=== PATIENT | female | born 2000 | race Caucasian/White ===

== ENCOUNTER 2025-05-21 07:07 | Day surgery (SDC) | payer OTHER, BC, SELFPAY ==
[2025-05-21] VITALS (10 sets, daily range): BP systolic 108–140; BP diastolic 47–95; PULSE 67–109; RESP 10–20; TEMP 36.3–37.3; O2SAT 96–100
--- NOTE | ~2025-05-21 | XR_ITS ---
EXAMINATION: XR retrograde pyelo w/stent RT DATE: 05/21/2025 11:49 INDICATION: Recent right-sided renal stone TECHNIQUE: 3 fluoroscopic images of the abdomen and pelvis were obtained procedure performed by Dr. Humphries. Radiologist was not present for the imaging or procedure. The amount of fluoroscopy time used during this procedure was 0.1 minutes. The dose area product was 0.029 mGym^2. COMPARISON: CT dated 05/21/2025 FINDINGS: Initial Armature Rewinder image demonstrates contrast in the bilateral renal collecting systems and bilateral ureters likely representing excreted contrast related to earlier contrast-enhanced CT. Persistent mild right hydroureteronephrosis. The right ureter and subsequently cannulated presumably for removal of the preceding noted right ureterovesicular junction stone. This is replaced with a right internal ureteral stent with loops formed in the right renal pelvis on the final image. IMPRESSION: 1. Mild right hydroureteronephrosis. See procedure note as to whether the previously seen obstructing stone at the right ureterovesicular junction has been extracted. 2. Placement of a right internal ureteral stent in expected position. Reviewed, dictated and finalized at location A. VANCE AND APPEALS COORDINATOR IMPRESSION: 1. Mild right hydroureteronephrosis. See procedure note as to whether the previ ously seen obstructing stone at the right ureterovesicular junction has been ex tracted. 2. Placement of a right internal ureteral stent in expected position.
--- NOTE | ~2025-05-21 | CT_ITS ---
EXAMINATION: CT abdomen pelvis w con DATE: 05/21/2025 08:25 INDICATION: Fever. Recent right renal stones with pyelonephritis. TECHNIQUE: Computed tomography (CT) of the abdomen and pelvis was performed with 100 mL Omnipaque-350 intravenous contrast. Automated exposure control and iterative reconstruction technique were employed. The dose-length product was 181.41 mGy-cm. COMPARISON: None FINDINGS: Lung bases are clear. Heart size is normal. No pericardial or pleural effusion. Liver, gallbladder, spleen, pancreas and bilateral adrenal glands are normal. Bilateral nephrolithiasis with 2 stones measuring up to 2 mm in the right kidney and 6 punctate < 2 mm stones in the left kidney. Obstructing 4-5 mm stone at the right ureterovesicular junction with mild right hydroureteronephrosis. Bowels including the appendix are normal. Bladder is normal. T-shaped IUD in expected position within the anteverted uterus. Bilateral adnexa are unremarkable with multiple small follicles measuring up to 1 cm. Trace amount of likely physiologic free fluid in the cul-de-sac. No abscess or free intraperitoneal gas. No pathologically enlarged abdominal or pelvic lymphadenopathy. Mild lumbar levocurvature. IMPRESSION: 1. Bilateral nephrolithiasis with 4-5 mm stone at the right ureterovesicular junction with mild right hydroureteronephrosis. Reviewed, dictated and finalized at location A. ERCIAL MANAGER IMPRESSION: 1. Bilateral nephrolithiasis with 4-5 mm stone at the right ureterovesicular ju nction with mild right hydroureteronephrosis.
[2025-05-21 07:31] LABS: Hematocrit 41.5 % (37.0-47.0); Hemoglobin 14.0 g/dL (12.0-15.0); Immature Granulocyte Percent A 0.3 % (0-0.5); Lymphocytes Absolute Auto 1.46 K/mm3 (0.9-3.2); Mean Corpuscular HGB Conc 33.7 g/dl (32-36); Mean Corpuscular Hemoglobin 32.6 pg (26-34); Mean Corpuscular Volume 96.7 fl (80-100); Nucleated Red Blood Cells Absolute Auto 0.000 K/mm3 (0.0-0.012); Nucleated Red Blood Cells Perc 0.0 % (0.0-0.2); Platelet Count Result 245 k/mm3 (150-375); Red Blood Count 4.29 M/mm3 (4.2-5.4); White Blood Count 10.2 K/mm3 (4.5-10.0)
[2025-05-21 07:36] LABS: Add Urine Microscopic? YES; Appearance Urine Clear (Clear); Glucose Urine UA Negative (Negative); Leukocyte Esterase Ur 1+ LEU/UL (Negative); Nitrate Urine Negative (Negative); Non Pathogenic Casts 0-2; Specific Grav Ur 1.018 (1.001-1.035)
[2025-05-21 07:37] LABS: BEDSIDEPREGUCG Negative (Negative)
[2025-05-21 07:43] LABS: Alanine Aminotransferase 16 U/L (6-35); Albumin Level 5.1 g/dL (3.5-5.1); Alkaline Phosphatase 56 U/L (38-126); Anion Gap 10 mmol/L (4-12); Aspartate Amino Transferase 22 U/L (14-36); Bilirubin,Total 0.4 mg/dL (0.2-1.3); Blood Urea Nitrogen 12 mg/dL (7-17); Calcium 9.4 mg/dL (8.4-10.2); Carbon Dioxide 26 mmol/L (22-30); Chloride 102 mmol/L (98-107); Estimated CRCL calculation 78 ml/min; Estimated Glomerular Filt Rate > 60; Glucose 101 mg/dL (65-110); Potassium 4.0 mmol/L (3.4-5.0); Sodium 138 mmol/L (137-145); Total Protein 8.1 g/dL (6.3-8.2)
--- NOTE | 2025-05-21 07:46 | ED.FEMALEGU ---
HPI - Female Genitourinary General Chief complaint: Urogenital-Female Stated complaint: R RENAL STONE Time Seen by Provider: 05/21/25 07:25 Source: patient and family (aunt and sister) Mode of arrival: ambulatory Limitations: no limitations History of Present Illness HPI Narrative: Patient presents with pain from a right sided kidney stone. She was seen at [facility] in [facility] 2 days ago and told she had a stone there. Still having flank pain and and nausea with vomiting. Pain had decreased but now back. Subjective fever today. Had been sent home on oxy, Zofran, and FLomax; taking them except not yet today. History of multiple kidney stones for which her urologist is Dr Walton. No previous procedure, only expulsion therapy previously. History UTI and pyelo as well. Related Data Allergies Allergy/AdvReac Type Severity Reaction Status Date / Time lactose AdvReac Unknown Abdominal Verified 05/21/25 07:09 Pain PMFSH Past Medical History Medical History History of kidney stones Exam Narrative: GENERAL: Well-appearing, well-nourished, in mild to moderate acute distress. HEAD: Normocephalic, atraumatic. EYES: Non injected, non icteric ENT: Nares clear, no rhinorrhea or epistaxis. Gross auditory acuity intact. NECK: Supple. No meningismus. CHEST: Speaking in full sentences. No respiratory distress. HEART: Regular rate and rhythm. . ABDOMEN: Soft, nondistended. No rigidity or guarding. Not peritoneal EXTREMITIES: Normal range of motion. No lower extremity edema. SKIN: Warm, dry, no rash. BACK: B/l CVA tenderness NEURO: No focal deficits. Alert and oriented. Answering questions. Following commands. Normal speech without aphasia or dysarthria. PSYCH: Normal mood and affect. Course Vital Signs Vital signs: Vital Signs Temperature 97.8 F 05/21/25 07:16 Pulse Rate 77 05/21/25 07:16 Respiratory Rate 20 05/21/25 07:16 Blood Pressure 133/95 H 05/21/25 07:16 Pulse Oximetry 100 05/21/25 07:16 Oxygen Delivery Room Air 05/21/25 07:16 Temperature 97.3 F L 05/21/25 11:58 Pulse Rate 78 05/21/25 13:55 Respiratory Rate 16 05/21/25 12:50 Blood Pressure 108/66 05/21/25 13:55 Pulse Oximetry 96 05/21/25 12:50 Oxygen Delivery Room Air 05/21/25 12:50 Oxygen Flow Rate 6 05/21/25 12:10 MDM - Female Genitourinary MDM Narrative Medical decision making narrative: Patient presents with persistent right sided flank pain. Seen at [facility] 2 days ago and diagnosed with kidney stone on the right, 3mm. Currently trialing expulsion therapy but still having pain , N/V despite oxy, Zofran and FLomax. In the emergency department she is afebrile with acceptable vital signs. Mild leukocytosis. Hematuria on urinalysis with some sterile pyuria. It does reflux to culture. Chemistry unremarkable. Patient had been given small dose morphine and ondansetron. CT as below. Pain and nausea still present on reassessment at approximately 8:45 a.m. although she notes that she is having some mild improvement. Redosed. Crystal FERNANDO with urology will see patient after discussing with her at 9am. FERNANDO evaluates patient and discusses with Dr Gilbert attending followed by patient in regards to options as it seems she should pass it given size and location but persistent pain and symptoms warrents consideration of procedure. Ultimately patient now electing to proceed with operative management. Will go to the OR this AM with urologist Dr Humphries. Remains hemodynamically stable. Differential Diagnosis Differential diagnosis: Likely urinary tract infection, ovarian cyst, ruptured ovarian cyst and other (pyelo; kidney stone/ureteral stone) Lab Data Attestation: I reviewed the patient's lab results. 05/21/25 07:23 05/21/25 07:23 Labs: Lab Results 05/21/25 05/21/25 Range/Units 07:23 07:35 WBC 10.2 H (4.5-10.0) K/mm3 RBC 4.29 (4.2-5.4) M/mm3 Hgb 14.0 (12.0-15.0) g/dL Hct 41.5 (37.0-47.0) % MCV 96.7 (80-100) fl MCH 32.6 (26-34) pg MCHC 33.7 (32-36) g/dl RDW 11.9 (11.5-14.5) % Plt Count 245 (150-375) k/mm3 MPV 10.1 (7.4-10.4) fl Immature Gran % (Auto) 0.3 (0-0.5) % Neut % (Auto) 79.3 H (45.5-73.1) % Lymph % (Auto) 14.3 L (18.3-44.2) % [place] % (Auto) 5.4 (2.6-8.5) % Eos % (Auto) 0.3 (0-4.4) % Baso % (Auto) 0.4 (0.2-1.2) % Lymph # (Auto) 1.46 (0.9-3.2) K/mm3 [place] # (Auto) 0.6 (0.1-0.6) K/mm3 Eos # (Auto) 0.0 (0-0.3) K/mm3 Baso # (Auto) 0.0 (0.0-0.1) K/mm3 Abs Immat Gran (auto) 0.03 (0.00-0.031) K/mm3 Absolute Neuts (auto) 8.1 H (1.3-6.7) K/mm3 Absolute Nucleated RBC 0.000 (0.0-0.012) K/mm3 Nucleated RBC % 0.0 (0.0-0.2) % Sodium 138 (137-145) mmol/L Potassium 4.0 (3.4-5.0) mmol/L Chloride 102 (98-107) mmol/L Carbon Dioxide 26 (22-30) mmol/L Anion Gap 10 (4-12) mmol/L BUN 12 (7-17) mg/dL Creatinine 0.76 (0.7-1.0) mg/dL Estim Creat Clear Calc 78 ml/min Estimated GFR > 60 (59 - ) Glucose 101 (65-110) mg/dL Calcium 9.4 (8.4-10.2) mg/dL Total Bilirubin 0.4 (0.2-1.3) mg/dL AST 22 (14-36) U/L ALT 16 (6-35) U/L Alkaline Phosphatase 56 (38-126) U/L Total Protein 8.1 (6.3-8.2) g/dL Albumin 5.1 (3.5-5.1) g/dL Urine Color Yellow (Yellow) Urine Appearance Clear (Clear) Urine pH 5.5 (5.0-9.0) Ur Specific [place] 1.018 (1.001-1.035) Urine Protein Trace (Negative) mg/dL Urine Glucose (UA) Negative (Negative) mg/dL Urine Ketones Negative (Negative) mg/dL Ur Blood (Man) 3+ H (Negative) Urine Nitrate Negative (Negative) Urine Bilirubin Negative (Negative) Urine Urobilinogen 0.2 (<2.0) mg/dL Leukocyte Esterase Rfl 1+ H (Negative) GERRY/UL Urine RBC 51-100 H (0-2) /hpf Urine WBC 11-20 H (0-3) /hpf Ur Squamous Epith Cells None seen (Few) /hpf Urine Bacteria None seen /hpf Urine Casts 0-2 POC Urine HCG, Qual Negative (Negative) Imaging Data Radiologist's impression: IMPRESSION: 1. Bilateral nephrolithiasis with 4-5 mm stone at the right ureterovesicular junction with mild right hydroureteronephrosis Discharge Plan Discharge Clinical Impression: Bilateral nephrolithiasis, Calculus of ureterovesical junction (UVJ), Hydroureteronephrosis Patient Disposition: Still a Patient Condition: Stable Time of Disposition: 10:12
[2025-05-21] MEDS: MORPHINE SULFATE (*CRX) 4 MG/ML INJ 2 MG IV PUSH ×2 (07:50→09:43)
[2025-05-21] MEDS: ONDANSETRON INJ 4 MG/2 ML VIAL IV PUSH ×2 (07:50→12:05)
--- OUTSIDE RECORDS SUMMARY | 2025-05-21 09:03 | XMS_ITS | Clinical Summary ---
Author Organization [facility] Address [address] [place] [address] Care Team Providers Care Ceramic Worker Name Role Phone David Fowler MD Primary Care Provider [phone] Allergies Active Allergy Reactions Criticality Noted Date Comments Lactose Swelling,Stomach upset Medium 01/08/2018 Pollen Extracts Rhinorrhea Low 03/10/2018 Medications levonorgestreL (LILETTA) 20.4 mcg/24 hrs (8 yrs) 52 mg IUD by intrauterine route once Active prochlorperazin e (COMPAZINE) 10 mg tablet Take 1 tablet (10 mg total) by mouth 2 (two) times a day as needed for nausea or vomiting 10 tablet 5 Active hydrOXYzine (ATARAX) 25 mg tabletIndicatio ns:anxiety Take 1 tablet (25 mg total) by mouth 3 (three) times a day as needed for anxiety Take one tablet by mouth as needed three times per day 90 tablet 1 5 Active propranoloL (INDERAL) 10 mg tablet Take 1 tablet (10 mg total) by mouth 3 (three) times a day 270 tablet 5 Active tamsulosin (FLOMAX) 0.4 mg extended release capsule Take 1 capsule (0.4 mg total) by mouth daily 30 capsule 5 Active oxyCODONE (ROXICODONE) 5 mg immediate release tabletIndicatio ns:Pain Take 1 tablet (5 mg total) by mouth every 6 (six) hours as needed for pain for up to 3 days 12 tablet 5 05/21/20 25 Active ondansetron (ZOFRAN) 4 mg tablet Take 1 tablet (4 mg total) by mouth every 6 (six) hours 12 tablet 5 Active Active Problems Problem Noted Date Diagnosed Date Pyelonephritis 08/02/2024 Hydronephrosis 08/02/2024 Body mass index (BMI) 21.0-21.9, adult Assessment & Plan (01/07/2024 5:14 PM CDT): Wt Readings from Last 3 Encounters: 01/06/24 53.1 kg (117 lb) 11/27/23 52.2 kg (115 lb) 11/14/23 52.2 kg (115 lb) Body mass index is 21.4 kg/m . -Stable, at goal of <30 bmi -Discussed recommendations for exercise at least 30 minutes moderate to vigorous exercise as tolerated most days of the week. (minimum 150 minutes weekly) -Discussed importance of well-balanced diet. History of ovarian cyst 12/08/2023 Assessment & Plan (12/08/2023 3:53 PM CDT): Happy with her IUD for her BCM. I did discuss with patient that her IUD only suppresses her ovarian function by about 50%. Therefore some women still have issues with the development of complex/hemorrhagic cyst that can cause undesired symptoms, such as the pelvic pain she has/had an experiencing. Can always consider adding a low-dose MEGAN to help provide better ovarian suppression and hopefully reduce occurrence of cyst. Await pelvic ultrasound. Can consider adding ortho Tri- Cyclen Lo in future if needed. Physical exam, annual 09/17/2023 Functional abdominal pain syndrome 05/20/2023 Small intestinal bacterial overgrowth (SIBO) 12/2022 Assessment & Plan (06/19/2023 2:25 PM MASTER BREWER): As per GI Start rifaxmin tid Irritable bowel syndrome with diarrhea 3 Chronic diarrhea 01/22/2023 Nausea and vomiting 01/22/2023 Assessment & Plan (09/17/2023 2:30 PM MASTER BREWER): Worsening sx Will start zofran again Assessment & Plan (06/19/2023 2:24 PM MASTER BREWER): Following with GI Nothing to exaplian sx at this time They are going to treat her for SIBO Unsure if that is cause at this time Bilateral lower abdominal cramping 01/22/2023 Bilateral upper abdominal discomfort 01/22/2023 Bloating 01/22/2023 Anxiety 09/26/2022 Assessment & Plan (01/07/2024 5:15 PM CDT): -chronic, stable -patient currently takes propranolol 10 mg t.i.d., hydroxyzine 25 mg t.i.d. -previously followed with Psychiatry -patient denies any worsening of depressed mood, thoughts of harming herself or others, or worsening anxiety -refill of propranolol and hydroxyzine provided -continue current therapy Assessment & Plan (06/19/2023 1:37 PM MASTER BREWER): Doing well at this time and well controlled. Takes inderal 10 mg prn and atarax 25 mg prn Can continue with those Assessment & Plan (09/26/2022 2:16 PM CDT): Doing well at this time and well controlled. Takes inderal 10 mg prn and atarax 25 mg prn Can continue with those Attention deficit hyperactiv ity disorder (ADHD), combined type 09/26/2022 Assessment & Plan (01/07/2024 5:17 PM CDT): -chronic, stable -previously prescribed Strattera 60 mg daily -previously followed with Psychiatry -patient reports she has not been taking the Strattera and feels that her ADHD has been stable without medication -patient reports she plans to continue without medication at this time -continue current treatment plan Assessment & Plan (09/26/2022 2:17 PM CDT): Stable at this time - will trestart strattera if needed but patient is doing well Can place referral to psychaitry now just in case Recurrent major depressive disorder, in partial remission 09/26/2022 Assessment & Plan (06/19/2023 1:38 PM MASTER BREWER): Stable at this time Patient reiterated no suicidal thoughts at this time; take medication as directed; contact 911 and go to the ER if becomes suicidal; discussed side effects of medication with patient; encouraged healthy diet and exericise; encouraged patient to see a counselor Partial remession No longer on zoloft Assessment & Plan (09/26/2022 2:18 PM CDT): Stable at this time Patient reiterated no suicidal thoughts at this time; take medication as directed; contact 911 and go to the ER if becomes suicidal; discussed side effects of medication with patient; encouraged healthy diet and exericise; encouraged patient to see a counselor Partial remession No longer on zoloft Vaginal dryness 02/01/2016 Resolved Problems Problem Noted Date Diagnosed Date Resolved Date Upper respiratory tract infection 08/30/2016 09/26/2022 Sore throat 04/30/2016 09/26/2022 Encounters Date Type Department Care Team Description 05/18/2025 10:11 AM MASTER BREWER - 05/18/2025 5:49 PM MASTER BREWER Emergency [facility] Emergency Department [address] [place] [address] Beatriz Kovacs MD Panagos, Peter David, MD Nephrolithiasis (Primary Dx) Discharge Disposition: Discharge to home or self care 04/13/2025 3:15 PM CDT Telemedicine [facility] Primary Care at [address] [phone] David Fowler MD Nausea and vomiting, unspecified vomiting type (Primary Dx); Acute bilateral low back pain, unspecified whether sciatica present; Pelvic pain; Lipid screening; Chronic pain of both knees; Preventative health care from Last 3 Months Immunizations Immunization Administration Dates Next Due DTaP, Unspecified 03/09/2008, 5,05/21/2003,03/04,2002 HPV9 02/19/2020,03/10/2018 Hep A, Unspecified 03/09/2008,04/07/2007 Hep B, Unspecified 05/21/2003,03/04/2003, 003 HiB 05/21/2003,03/04/2003,2002 IPV 03/09/2008, 3,03/04/2003,12/14 Influenza, Quadrivalent, Janessa l Culture-based MDCK, Preservative Free, Antibiotic Free, Intramuscular 03/19/2017 Influenza, Unspecified 09/26/2022(Deferr ed: Patient Refused),03/09/2008,04/07/2007, 003 MMR 03/09/2008,10/25/2003 Meningococcal MCV4P (Menactra) 02/19/2020,2015 Pneumococcal Conjugate 7-Valent 05/02/20,05/21/2003,03/04/2003,12/14 Pneumococcal Conjugate, Unspecified 04/14,05/21/2003,03/04/2003,12/14 Polio, Unspecified 03/09/2008, 3,03/04/2003,12/14 Tdap 11/14/2012 Varicella 03/09/2008,10/25/2003 Surgical History Surgery Date Site/Laterality Comments WISDOM TOOTH EXTRACTION 07/15/2019 - 07/14/2020 COLONOSCOPY 03/05/2023 Medical History Medical History Date Comments Depression Anxiety Kidney stones History of chlamydia 08/14/2022 Family History Medical History Relation Name Comments Kidney nephrosis Father Irritable bowel syndrome Half-Brother Endometriosis Half-Sister 1 Hyperlipidemia Mother Relation Name Status Comments Father Alive Half-Brother Alive Half-Sister 1 Alive Half-Sister 2 Alive Half-Sister 3 Alive Mother Alive Social History Tobacco Use Types Packs/Day Years Used Date Smoking Tobacco: Never Smokeless Tobacco: Never Tobacco Cessation:Counseling Given: Yes PHQ-2 Answer Date Recorded PHQ-2 Total Score (If total score is 3 or more points, staff should administer the PHQ-9) 1 04/13/2025 AUDIT-C Answer Date Recorded Q1: How often do you have a drink containing alc ohol? Monthly or less 04/13/2025 Average Number of Drinks Not on file 025 Frequency of Binge Drinking Not on file 03/17 Personal Safety Answer Date Recorded Have you ever been in or are you currently in a harmful physical or emotional relationship or is someone making you feel afraid or unsafe? Denies 05/18/2025 Comments No Sex and Gender Information Value Date Recorded Sex Assigned at Not on file Legal Sex Female 6:09 AM MASTER BREWER Gender Identity Female 09/14/2023 12:58 PM MASTER BREWER Sexual Orientation Straight 09/14/2023 12 :58 PM MASTER BREWER Obstetrics History Para Term AB IAB SAB Ectopic Multiple Livin g Live Births 0 0 0 0 0 0 0 0 0 0 0 Last Filed Vital Signs Vital Sign Reading Time Taken Comments Blood Pressure 112/70 05/18/2025 12:50 PM MASTER BREWER Pulse 106 05/18/2025 9:42 AM MASTER BREWER Temperature 36.7 C (98 F) 05/18/2025 9:44 AM MASTER BREWER Respiratory Rate 16 05/18/2025 9:42 AM MASTER BREWER Oxygen Saturation 100% 05/18/2025 9:42 AM MASTER BREWER Inhaled Oxygen Concentration - - Weight 46.3 kg (102 lb) 05/18/2025 9:42 AM MASTER BREWER Height 157.5 cm (5' 2) 05/18/2025 9:42 AM MASTER BREWER Body Mass Index 18.66 05/18/2025 9:42 AM MASTER BREWER Plan of Treatment Health Maintenance Due Date Last Done Comments Hepatitis C Screening 2002 Meningococcal B Vaccine (1 o f 2 - Standard) 2018 HPV Vaccines (3 - 3-dose series) 05/13/2020 02/19/20 20, 03/10/2018 DTaP/Tdap/Td Vaccine (7 - Td or Tdap) 11/14/2022 11/14/2012, 03/09/2008, 05/02/2005, Additional history exists Influenza Vaccine (#1) 2025 7, 03/09/2008, 04/07/2007, Additional history exists Cervical Cancer Screening 11/20/2025 11/20/2024, 08/2023 Chlamydia and Gonorrhea (GC/ CT) Screening 11/20/2025 11/20/2024, 11/14/2023, 09/17/2022, Additional history exists Regular Well Visit/Exam 18-64 11/20/2025, 11/14/2023, 09/17/2023 Depression Screening 04/13/2026 04/13/2025, 11/20/2024, 09/28/2024, Additional history exists Hepatitis B Screening Completed 05/21/2003 , 03/04/2003, 2002 Pneumococcal vaccine <65 Completed 005, 05/02/2005, 05/21/2003, Additional history exists Varicella Vaccines Completed 03/09/2008, 10/25/2003 Covid-19 Vaccine Discontinued 10/28/2022, 11/2021, 12/09/2020, Additional history exists Procedures Procedure Name Priority Date/Time Associated Diagnosis Comments CT ABDOMEN PELVIS W CONTRAST ED Urgent/IP Urgent 05/18/2025 1:27 PM MASTER BREWER EGFR STAT 05/18/2025 12:32 PM MASTER BREWER DIFFERENTIAL AUTO STAT 05/18/2025 12: 32 PM MASTER BREWER LIPASE STAT 05/18/2025 12:32 PM MASTER BREWER COMPREHENSIVE METABOLIC PANEL STAT 05/18/2025 12:32 PM MASTER BREWER CBC WITH AUTO DIFFERENTIAL STAT 05/18/2025 12:32 PM MASTER BREWER EGFR STAT 05/18/2025 11:19 AM MASTER BREWER DIFFERENTIAL AUTO STAT 05/18/2025 11: 19 AM MASTER BREWER LIPASE STAT 05/18/2025 11:19 AM MASTER BREWER COMPREHENSIVE METABOLIC PANEL STAT 05/18/2025 11:19 AM MASTER BREWER CBC WITH AUTO DIFFERENTIAL STAT 05/18/2025 11:19 AM MASTER BREWER POCT HCG, URINE Routine 05/18/2025 10:31 AM MASTER BREWER URINALYSIS, MICROSCOPIC ONLY STAT 05/18/2025 10:31 AM MASTER BREWER URINALYSIS AND REFLEX TO MICROSCOPIC STAT 05/18/2025 10:31 AM MASTER BREWER N. GONORRHOEAE/C. TRACHOMATIS AMPLIFICATION Routine 11/20/2024 4:31 PM CDT PAP, REFLEX HPV Routine 11/20/2024 4:31 PM CDT Well woman exam from Last 3 Months or Most Recently Relevant to Health Maintenance Results * CT Abdomen Pelvis W Contrast (05/18/2025 1:27 PM MASTER BREWER) Anatomical Region Laterality Modality Body N/A Computed Tomogra phy 05/18/2025 2:32 PM MASTER BREWER Impressions 05/18/2025 2:33 PM MASTER BREWER Mild right-sided hydronephrosis with 3 mm calcification in the region of the distal right ureter that could represent a ureteral stone. Though, it is difficult to follow the ureter to the bladder. Dictated by: Amari Guevara M.D. The radiology attending physician has personally reviewed this study, and had reviewed and/or edited this written report and agrees with it. Electronically signed by: Prince Fraser M.D. Narrative 05/18/2025 2:33 PM MASTER BREWER EXAMINATION: Computed tomography of the abdomen and pelvis with intravenous contrast HISTORY: 24-year-old female presenting with right flank and suprapubic pain. Concern for renal calculus. TECHNIQUE: Transaxial computed tomographic images of the abdomen and pelvis were obtained with intravenous contrast according to the standard protocol after the administration of 69 mL Opti-Ray 350 intravenous contrast. COMPARISON: 08/02/2024 CT. FINDINGS: Imaged lung bases are clear. No pleural effusion or pneumothorax. The heart is normal size without pericardial effusion. No focal lesion of the liver. No intra or extrahepatic biliary ductal dilatation. The gallbladder is decompressed. The pancreas and spleen are within normal limits. The kidneys are symmetrically enhancing. There are bilateral nonobstructing renal calculi. The previously seen right-sided hydronephrosis has decreased. There is a 3 mm calcification in the region of the distal right ureter that could represent a stone. The bladder is decompressed. The uterus is present with an intrauterine device in place. The large and small bowel are of normal caliber without evidence of obstruction. The abdominal aorta is of normal caliber. No abdominal or pelvic lymphadenopathy. No suspicious lytic or blastic osseous lesion. Procedure Note Prince Fraser MD - 05/18/2025 EXAMINATION: Computed tomography of the abdomen and pelvis with intravenous contrast HISTORY: 24-year-old female presenting with right flank and suprapubic pain. Concern for renal calculus. TECHNIQUE: Transaxial computed tomographic images of the abdomen and pelvis were obtained with intravenous contrast according to the standard protocol after the administration of 69 mL Opti-Ray 350 intravenous contrast. COMPARISON: 08/02/2024 CT. FINDINGS: Imaged lung bases are clear. No pleural effusion or pneumothorax. The heart is normal size without pericardial effusion. No focal lesion of the liver. No intra or extrahepatic biliary ductal dilatation. The gallbladder is decompressed. The pancreas and spleen are within normal limits. The kidneys are symmetrically enhancing. There are bilateral nonobstructing renal calculi. The previously seen right-sided hydronephrosis has decreased. There is a 3 mm calcification in the region of the distal right ureter that could represent a stone. The bladder is decompressed. The uterus is present with an intrauterine device in place. The large and small bowel are of normal caliber without evidence of obstruction. The abdominal aorta is of normal caliber. No abdominal or pelvic lymphadenopathy. No suspicious lytic or blastic osseous lesion. IMPRESSION: Mild right-sided hydronephrosis with 3 mm calcification in the region of the distal right ureter that could represent a ureteral stone. Though, it is difficult to follow the ureter to the bladder. Dictated by: Amari Guevara M.D. The radiology attending physician has personally reviewed this study, and had reviewed and/or edited this written report and agrees with it. Electronically signed by: Prince Fraser M.D. us Beatriz Kovacs MD IM CT PROCEDURES Final Re sult * eGFR (05/18/2025 12:32 PM MASTER BREWER) eGFR >90 >=60 mL/min/1. 73 m2 Comment: Interpretive Data Reference Interval Normal >/= 90 mL/min/1.73m2 Mildly decreased* 60 - 89 mL/min/1.73m2 Mildly to moderately decreased 45 - 59 mL/min/1.73m2 Moderately to severely decreased 30 - 44 mL/min/1.73m2 Severely decreased 15 - 29 mL/min/1.73m2 Kidney Failure < 15 mL/min/1.73m2 *Relative to young adult level Estimated glomerular filtration rate is determined by the 2020 CKD-EPI equation recommended by the National Kidney Foundation (A Unifying Approach to GFR Estimation: Recommendations of the NKF-ASK Task Force on Reassessing the Inclusion of Race in Diagnosing Kidney Disease, JASN 2020). The CKD-EPI equation should not be used for patients with unstable renal function and has not been validated in children and those over 70. Current interpretive data was last reviewed 2021. Blood 05/18/2025 12:3 2 PM MASTER BREWER 05/18/2025 12:42 PM MASTER BREWER Beatriz Kovacs MD LAB BLOOD ORDERABLES Final Result [facility] [place] [address] * (ABNORMAL) Differential, auto (05/18/2025 12:32 PM MASTER BREWER) Neutrophil abs 6.52(H) 1.50 - 6.50 K/cumm Imm gran abs 0.02 0.00 - 0.10 K/cumm [facility] Lymphocyte abs 2.21 0.80 - 3.30 K/cumm [facility] Monocyte abs 0.58 0.20 - 0.80 K/cumm [facility] Eosinophil abs 0.07 0.00 - 0.50 K/cumm [facility] Basophil abs 0.05 0.00 - 0.10 K/cumm [facility] Neutrophil pct 69.1 % [facility] Comment: Interpretive Data Percent cell count reference ranges are not reported, since discordance with absolute values may lead to misinterpretation of CBC data. Current Interpretive Data was last revised on 2017. Imm gran pct 0.2 % [facility] Comment: Interpretive Data Percent cell count reference ranges are not reported, since discordance with absolute values may lead to misinterpretation of CBC data. Current Interpretive Data was last revised on 2017. Lymphocyte pct 23.4 % [facility] Comment: Interpretive Data Percent cell count reference ranges are not reported, since discordance with absolute values may lead to misinterpretation of CBC data. Current Interpretive Data was last revised on 2017. Monocyte pct 6.1 % [facility] Comment: Interpretive Data Percent cell count reference ranges are not reported, since discordance with absolute values may lead to misinterpretation of CBC data. Current Interpretive Data was last revised on 2017. Eosinophil pct 0.7 % [facility] Comment: Interpretive Data Percent cell count reference ranges are not reported, since discordance with absolute values may lead to misinterpretation of CBC data. Current Interpretive Data was last revised on 2017. Basophil pct 0.5 % [facility] Comment: Interpretive Data Percent cell count reference ranges are not reported, since discordance with absolute values may lead to misinterpretation of CBC data. Current Interpretive Data was last revised on 2017. Blood 05/18/2025 12:3 2 PM MASTER BREWER 05/18/2025 12:42 PM MASTER BREWER us Beatriz Kovacs MD LAB BLOOD ORDERABLES Final Result [facility] [place] [address] * (ABNORMAL) CBC with auto differential (05/18/2025 12:32 PM MASTER BREWER) WBC 9.45 3.80 - 9.90 K/cumm Hgb 12.3 11.9 - 15.5 g/dL [facility] Hct 35.2(L) 35.6 - 45.5 % [facility] Plt 233 150 - 400 K/cumm [facility] MPV 10.3 9.1 - 12.3 fL [facility] RBC 3.75(L) 3.90 - 5.20 M/cumm [facility] MCV 93.9 81.3 - 96.4 fL [facility] MCH 32.8 27.1 - 33.3 pg [facility] MCHC 34.9 32.3 - 35.7 g/dL [facility] RDW CV 11.9 11.1 - 14.9 % [facility] RDW SD 41.4 35.7 - 48.1 fL [facility] NRBC abs 0.00 0.00 - 0.01 K/cumm [facility] Blood 05/18/2025 12:3 2 PM MASTER BREWER 05/18/2025 12:42 PM MASTER BREWER Beatriz Kovacs MD LAB BLOOD ORDERABLES Final Result Performing Organization Address City/[facility]/ZIP Co de Phone Number [facility] [place] [address] * Lipase (05/18/2025 12:32 PM MASTER BREWER) [facility] Lipase 16 10 - 99 Units/L Blood 05/18/2025 12:3 2 PM MASTER BREWER 05/18/2025 12:42 PM MASTER BREWER Beatriz Kovacs MD LAB BLOOD ORDERABLES Final Result Performing Organization Address [facility] de Phone Number [facility] [place] [address] * (ABNORMAL) Comprehensive metabolic panel (05/18/2025 12:32 PM MASTER BREWER) [facility] Sodium 140 135 - 145 mmol/L Potassium, pl 3.7 3.3 - 4.9 mmol/L [facility] Chloride 107 97 - 110 mmol/L [facility] CO2 25 22 - 32 mmol/L [facility] Anion gap 8 2 - 15 mmol/L [facility] BUN 10 6 - 25 mg/dL [facility] Creatinine 0.71 0.60 - 1.10 mg/dL [facility] Glucose 98 70 - 199 mg/dL [facility] Comment: Interpretive Data Fasting glucose >/= 126 mg/dl is diagnostic for diabetes. Fasting is defined as no caloric intake for at least 8 hours. Fasting glucose between 100 mg/dl to 125 mg/dl is diagnostic of prediabetes. In a patient with classic symptoms of hyperglycemia or hyperglycemic crisis, a random glucose >/= 200 mg/dl is diagnostic for diabetes. In the absence of unequivocal hyperglycemia, results should be confirmed by repeat testing. The classification and Diagnosis of Diabetes Diabetes Care 2021; 46: S19-S40. Current interpretive data was last revised 2022. Calcium 8.3(L) 8.5 - 10.3 mg/dL [facility] Bilirubin, total 0.5 0.1 - 1.2 mg/dL [facility] Protein, pl 6.3(L) 6.5 - 8.5 g/dL [facility] Albumin 4.1 3.5 - 5.0 g/dL [facility] Alk phos 49 40 - 130 Units/L [facility] ALT 10 7 - 45 Units/L [facility] AST 12 10 - 45 Units/L [facility] Blood 05/18/2025 12:3 2 PM MASTER BREWER 05/18/2025 12:42 PM MASTER BREWER us Beatriz Kovacs MD LAB BLOOD ORDERABLES Final Result [facility] [place] [address] * eGFR (05/18/2025 11:19 AM MASTER BREWER) eGFR >90 >=60 mL/min/1. 73 m2 Comment: Interpretive Data Reference Interval Normal >/= 90 mL/min/1.73m2 Mildly decreased* 60 - 89 mL/min/1.73m2 Mildly to moderately decreased 45 - 59 mL/min/1.73m2 Moderately to severely decreased 30 - 44 mL/min/1.73m2 Severely decreased 15 - 29 mL/min/1.73m2 Kidney Failure < 15 mL/min/1.73m2 *Relative to young adult level Estimated glomerular filtration rate is determined by the 2020 CKD-EPI equation recommended by the National Kidney Foundation (A Unifying Approach to GFR Estimation: Recommendations of the NKF-ASK Task Force on Reassessing the Inclusion of Race in Diagnosing Kidney Disease, JASN 202). The CKD-EPI equation should not be used for patients with unstable renal function and has not been validated in children and those over 70. Current interpretive data was last reviewed 2021. Blood 05/18/2025 11:1 9 AM MASTER BREWER 05/18/2025 1:11 PM MASTER BREWER Beatriz Kovacs MD LAB BLOOD ORDERABLES Final Result [facility] [place] [address] * (ABNORMAL) Differential, auto (05/18/2025 11:19 AM MASTER BREWER) Neutrophil abs 9.60(H) 1.50 - 6.50 K/cumm Imm gran abs 0.04 0.00 - 0.10 K/cumm [facility] Lymphocyte abs 2.26 0.80 - 3.30 K/cumm [facility] Monocyte abs 0.58 0.20 - 0.80 K/cumm [facility] Eosinophil abs 0.03 0.00 - 0.50 K/cumm [facility] Basophil abs 0.04 0.00 - 0.10 K/cumm [facility] Neutrophil pct 76.6 % [facility] Comment: Interpretive Data Percent cell count reference ranges are not reported, since discordance with absolute values may lead to misinterpretation of CBC data. Current Interpretive Data was last revised on 2017. Imm gran pct 0.3 % [facility] Comment: Interpretive Data Percent cell count reference ranges are not reported, since discordance with absolute values may lead to misinterpretation of CBC data. Current Interpretive Data was last revised on 2017. Lymphocyte pct 18.0 % [facility] Comment: Interpretive Data Percent cell count reference ranges are not reported, since discordance with absolute values may lead to misinterpretation of CBC data. Current Interpretive Data was last revised on 2017. Monocyte pct 4.6 % [facility] Comment: Interpretive Data Percent cell count reference ranges are not reported, since discordance with absolute values may lead to misinterpretation of CBC data. Current Interpretive Data was last revised on 2017. Eosinophil pct 0.2 % [facility] Comment: Interpretive Data Percent cell count reference ranges are not reported, since discordance with absolute values may lead to misinterpretation of CBC data. Current Interpretive Data was last revised on 2017. Basophil pct 0.3 % [facility] Comment: Interpretive Data Percent cell count reference ranges are not reported, since discordance with absolute values may lead to misinterpretation of CBC data. Current Interpretive Data was last revised on 2017. Blood 05/18/2025 11:1 9 AM MASTER BREWER 05/18/2025 1:11 PM MASTER BREWER us Beatriz Kovacs MD LAB BLOOD ORDERABLES Final Result [facility] [place] [address] * (ABNORMAL) CBC with auto differential (05/18/2025 11:19 AM MASTER BREWER) WBC 12.55(H) 3.80 - 9.90 K/cumm Hgb 14.2 11.9 - 15.5 g/dL [facility] Hct 40.8 35.6 - 45.5 % [facility] Plt 315 150 - 400 K/cumm [facility] MPV 11.0 9.1 - 12.3 fL [facility] RBC 4.33 3.90 - 5.20 M/cumm [facility] MCV 94.2 81.3 - 96.4 fL [facility] MCH 32.8 27.1 - 33.3 pg [facility] MCHC 34.8 32.3 - 35.7 g/dL [facility] RDW CV 11.9 11.1 - 14.9 % [facility] RDW SD 41.4 35.7 - 48.1 fL [facility] NRBC abs 0.00 0.00 - 0.01 K/cumm [facility] Blood 05/18/2025 11:1 9 AM MASTER BREWER 05/18/2025 1:11 PM MASTER BREWER Beatriz Kovacs MD LAB BLOOD ORDERABLES Final Result Performing Organization Address City/[facility]/ZIP Co de Phone Number [facility] [place] [address] * Lipase (05/18/2025 11:19 AM MASTER BREWER) Pathologist [facility] Lipase 18 10 - 99 Units/L Blood 05/18/2025 11:1 9 AM MASTER BREWER 05/18/2025 1:11 PM MASTER BREWER Beatriz Kovacs MD LAB BLOOD ORDERABLES Final Result Performing Organization Address [facility] Phone Number [facility] [place] [address] * Comprehensive metabolic panel (05/18/2025 11:19 AM MASTER BREWER) [facility] Sodium 143 135 - 145 mmol/L Potassium, pl 3.7 3.3 - 4.9 mmol/L [facility] Chloride 104 97 - 110 mmol/L [facility] CO2 26 22 - 32 mmol/L [facility] Anion gap 13 2 - 15 mmol/L [facility] BUN 11 6 - 25 mg/dL [facility] Creatinine 0.72 0.60 - 1.10 mg/dL [facility] Glucose 85 70 - 199 mg/dL [facility] Comment: Interpretive Data Fasting glucose >/= 126 mg/dl is diagnostic for diabetes. Fasting is defined as no caloric intake for at least 8 hours. Fasting glucose between 100 mg/dl to 125 mg/dl is diagnostic of prediabetes. In a patient with classic symptoms of hyperglycemia or hyperglycemic crisis, a random glucose >/= 200 mg/dl is diagnostic for diabetes. In the absence of unequivocal hyperglycemia, results should be confirmed by repeat testing. The classification and Diagnosis of Diabetes Diabetes Care 2021; 46: S19-S40. Current interpretive data was last revised 2022. Calcium 9.5 8.5 - 10.3 mg/dL [facility] Bilirubin, total 0.6 0.1 - 1.2 mg/dL [facility] Protein, pl 7.7 6.5 - 8.5 g/dL [facility] Albumin 4.9 3.5 - 5.0 g/dL [facility] Alk phos 59 40 - 130 Units/L [facility] ALT 13 7 - 45 Units/L [facility] AST 17 10 - 45 Units/L [facility] Blood 05/18/2025 11:1 9 AM MASTER BREWER 05/18/2025 1:11 PM MASTER BREWER us Beatriz Kovacs MD LAB BLOOD ORDERABLES Final Result [facility] [place] [address] * (ABNORMAL) Urinalysis reflex to microscopic (05/18/2025 10:31 AM MASTER BREWER) Color, ur Straw Yellow Clarity, ur Clear Clear [facility] Specific gravity, ur 1.019 1.003 - 1.030 [facility] pH, urine 7.0 [facility] Comment: Interpretive Data U rine pH is affected by diet, medications, systemic acid-base disturbances, and renal tubular function. pH may affect urinary stone formation. For example, urine pH below 6.0 may help reduce the tendency for calcium phosphate stones and pH greater than 6.0 may reduce the tendency for uric acid stone formation. Source: [facility] uiu Current Interpretive Data was last revised on 2017 Protein, ur ql Trace Negative [facility] Glucose, ur ql Negative Negative [facility] Ketones, ur Negative Negative [facility] Bilirubin, ur Negative Negative [facility] Blood, ur 2+(A) Negative [facility] Urobilinogen, ur <2.0 <2.0 mg/dL [facility] Nitrite, ur Negative Negative [facility] Leukocyte esterase, ur Negative Negative [facility] UA reflex comment Reflex to microscopic UA will be performed. [facility] Urine 05/18/2025 10:3 1 AM MASTER BREWER 05/18/2025 10:39 AM MASTER BREWER Beatriz Kovacs MD LAB URINE ORDERABLES Final Result Performing Organization Address [facility] Co de Phone Number [facility] [place] [address] * (ABNORMAL) Urinalysis, microscopic only (05/18/2025 10:31 AM MASTER BREWER) Pathologist [facility] WBC, ur 0-5 0 - 5 /HPF RBC, ur 21-50(A) 0 - 2 /HPF [facility] Epithelial cells, squamous, ur 1-5 0 - 5 /HPF [facility] Bacteria, ur Trace(A) [facility] Mucous, ur Present(A) [facility] Urine 05/18/2025 10:3 1 AM MASTER BREWER 05/18/2025 10:39 AM MASTER BREWER Beatriz Kovacs MD LAB URINE ORDERABLES Final Result Performing Organization Address [facility] de Phone Number [facility] [place] [address] * POCT hCG, urine (05/18/2025 10:31 AM MASTER BREWER) Pathologist [facility] HCG, ur, POC Negative Negative Lot Number [id number] QC Backgroud Clear Acceptable QC Control Line Acceptable Urine 05/18/2025 10:3 1 AM MASTER BREWER Beatriz Kovacs MD POINT OF CARE TEST ORDERAB LES Final Result * Pap, reflex HPV (11/20/2024 4:31 PM CDT) CLINICAL INFORMATION: [facility] Comment:SCREENING LMP [facility] Comment:UNKNOWN Previous Pap [facility] Comment:NONE GIVEN Prev. Bx [facility] Comment:NONE GIVEN SOURCE: [facility] Comment:Cervix, Endocervix Pap, specimen adequacy [facility] Comment: Satisfactory for evaluation. Endocervical/transformation zone component present. Age and/or menstrual status not provided HPV interp [facility] Comment: Cytology Results: Negative for intraepithelial lesion or malignancy. COMMENTS [facility] Comment: This Pap test has been evaluated with computer assisted technology. Special Needs Child Caregiver [facility] Comment: DXP, CT(ASCP) CT Screening Location: [facility] [address] [place] [address] Comment [facility] Comment: EXPLANATORY NOTE: The Pap is a screening test for cervical cancer. It is not a diagnostic test and is subject to false negative and false positive results. It is most reliable when a satisfactory sample, regularly obtained, is submitted with relevant clinical findings and history, and when the Pap result is evaluated along with historic and current clinical information. Thin prep 11/20/2024 4:31 PM CDT 11/23/2024 8:41 AM CDT us Annamaria Mg RENEWABLE ENERGY TRADER LAB CYTOLOGY ORDERABLES Final Re sult [address] [address] * N. gonorrhoeae/C. trachomatis Amplification (11/20/2024 4:31 PM CDT) C. trachomatis RNA NOT DETECTED NOT DETECTED [facility] N. gonorrhoeae RNA NOT DETECTED NOT DETECTED [facility] Comment [facility] Comment: The analytical performance characteristics of this assay, when used to test SurePath(TM) specimens have been determined by [employer]. The modifications have not been cleared or approved by the FDA. This assay has been validated pursuant to the CLIA regulations and is used for clinical purposes. For additional information, please refer to https://education.[employer]/faq/SKG465 (This link is being provided for information/ educational purposes only.) 11/20/2024 4:31 PM CDT 11/23/2024 8:41 AM CDT us Annamaria Mg RENEWABLE ENERGY TRADER LAB MICROBIOLOGY - GENERAL ORDER MADY Final Result [facility] [address] [place] [address] from Last 3 Months or Most Recently Relevant to Health Maintenance Insurance [employer] Address: [facility] [id number] [place] [address] [employer] Address: [facility] [id number] [place] [address] [employer] Address: [address] [place] [address] [employer] Address: [facility] [id number] [place] [address] [place] [address] [employer] Address: [facility] [id number] [place] [address] Advance Directives For more information, please contact: [phone] * Full Code (Latest Code Status on File) Date Activated Date Inactivated Comments 08/02/2024 5:06 PM 08/04/2024 6:07 PM * Full Code Date Activated Date Inactivated Comments 03/05/2023 1:12 PM 03/05/2023 7:09 PM * Full Code Date Activated Date Inactivated Comments 03/05/2023 1:12 PM 03/05/2023 1:12 PM Care Teams Ceramic Worker Relationship Specialty Start Date End Date David Fowler MD PCP - General Family Medicine 09/26/22
--- NOTE | 2025-05-21 09:39 | P.CONUR_ITS ---
Assessment and Plan Assessment and plan (1) Calculus of ureterovesical junction (UVJ): Code(s): N20.1 - Calculus of ureter Status: Acute (2) Hydroureteronephrosis: Code(s): N13.30 - Unspecified hydronephrosis Status: Acute (3) Bilateral nephrolithiasis: Code(s): N20.0 - Calculus of kidney Status: Acute Plan -ct ap reveals Bilateral nephrolithiasis with 4-5 mm stone at the right ureterovesical junction with mild right hydroureteronephrosis. -cr wnl -wbc 10.2 -keep npo -patient scheduled for Right special with OR for Dr. Humphries to follow her current case. -discussed the surgery and possibility of stent and after care. We discussed the risks including infection, bleeding, damage to surrounding structures, or . She is agreeable to proceed with surgery today. Urology Consult Note HPI Date Seen: 05/21/25 Primary Care Provider: David Fowler, Consult Narrative Narrative: Lawanda Hunt is a 24 year old female presents to the emergency department with worsneing right flank pain. She was at [place] two days ago with flank pain and told she had a stone. She has been taking flomax and oxycodone for pain to try to pass it. she is afebrile with acceptable vital signs. Mild leukocytosis. Hematuria on urinalysis with some pyuria. It does reflux to culture. Chemistry unremarkable. Patient had been given small dose morphine and ondansetron. Pain and nausea still present on reassessment at approximately 8:45 a.m. although she notes that she is having some mild improvement. She has been NPO since yesterday. Review of Systems 2 Review of Systems: All systems reviewed & are unremarkable except as noted in HPI and below Meds Home Medications and Allergies Allergies Allergy/AdvReac Type Severity Reaction Status Date / Time lactose AdvReac Unknown Abdominal Verified 05/21/25 07:09 Pain Vital Signs Vital Signs - 24 hr 05/21/25 07:16 05/21/25 08:50 Temperature 97.8 F Pulse Rate 77 67 Respiratory Rate 20 18 Blood Pressure 133/95 H 108/95 H Pulse Oximetry 100 99 Oxygen Delivery Room Air Exam 2 Const: General: uncomfortable HENMT: Face/Nose/Sinus: Normal nares present Eyes: General: appearance normal, both eyes and all related structures Resp: Effort & Inspection: normal respiratory effort Skin: General skin exam: normal color Neuro: Speech: normal speech Psych: Speech and movement: Normal speech and movement present Results Labs 05/21/25 07:23 05/21/25 07:23 Labs: Short CBC 05/21/25 Range/Units 07:23 WBC 10.2 H (4.5-10.0) K/mm3 Hgb 14.0 (12.0-15.0) g/dL Hct 41.5 (37.0-47.0) % Plt Count 245 (150-375) k/mm3 BMP 05/21/25 07:23 Sodium 138 Potassium 4.0 Chloride 102 Carbon Dioxide 26 BUN 12 Creatinine 0.76 Glucose 101 Calcium 9.4 Liver Function 05/21/25 Range/Units 07:23 Total Bilirubin 0.4 (0.2-1.3) mg/dL AST 22 (14-36) U/L ALT 16 (6-35) U/L Alkaline Phosphatase 56 (38-126) U/L Albumin 5.1 (3.5-5.1) g/dL Urine 05/21/25 Range/Units 07:23 Urine Color Yellow (Yellow) Urine Appearance Clear (Clear) Urine pH 5.5 (5.0-9.0) Ur Specific [place] 1.018 (1.001-1.035) Urine Protein Trace (Negative) mg/dL Urine Glucose (UA) Negative (Negative) mg/dL
[2025-05-21] MEDS: METOCLOPRAMIDE HCL INJ 10 MG/2 ML VIAL 5 MG IV PUSH (09:43)
[2025-05-21] MEDS: TAMSULOSIN HCL 0.4 MG CAPSULE PO (09:43)
[2025-05-21] MEDS: LACTATED RINGERS 1,000 ML 30 ML IV CONT ×2 (10:15→11:58)
--- NOTE | 2025-05-21 10:50 | WPDANESEPPF ---
Anes - Initial Pre Proc Eval Procedure: Operation Date: 05/21/25 11:30 Proposed Procedures p Cystoscopy, right Ureteroscopy, Possible Right Retrograde Pyelogram, Possible Right Retrograde Pyelogram, Possible Right Stone Extraction, Possible Right Stent Placement - Puja Humphries MD Date/Time: 05/21/25 10:50 Surgeon: Puja Humphries MD Pre Op Diagnosis: R RENAL STONE Patient Data Age: 24 Gender: F Height: 1.57 m Weight: 49.1 kg Last Vital Signs Temp 97.8 F 05/21/25 07:16 Pulse 67 05/21/25 08:50 Resp 18 05/21/25 08:50 BP 108/95 H 05/21/25 08:50 Pulse Ox 99 05/21/25 08:50 O2 Del Method Room Air 05/21/25 07:16 Allergies Allergy/AdvReac Type Severity Reaction Status Date / Time lactose AdvReac Unknown Abdominal Verified 05/21/25 07:09 Pain Laboratory Tests 05/21/25 05/21/25 07:23 07:35 WBC 10.2 H K/mm3 (4.5-10.0) RBC 4.29 M/mm3 (4.2-5.4) Hgb 14.0 g/dL (12.0-15.0) Hct 41.5 % (37.0-47.0) MCV 96.7 fl (80-100) MCH 32.6 pg (26-34) MCHC 33.7 g/dl (32-36) RDW 11.9 % (11.5-14.5) Plt Count 245 k/mm3 (150-375) MPV 10.1 fl (7.4-10.4) Immature Gran % (Auto) 0.3 % (0-0.5) Neut % (Auto) 79.3 H % (45.5-73.1) Lymph % (Auto) 14.3 L % (18.3-44.2) [place] % (Auto) 5.4 % (2.6-8.5) Eos % (Auto) 0.3 % (0-4.4) Baso % (Auto) 0.4 % (0.2-1.2) Lymph # (Auto) 1.46 K/mm3 (0.9-3.2) [place] # (Auto) 0.6 K/mm3 (0.1-0.6) Eos # (Auto) 0.0 K/mm3 (0-0.3) Baso # (Auto) 0.0 K/mm3 (0.0-0.1) Abs Immat Gran (auto) 0.03 K/mm3 (0.00-0.031) Absolute Neuts (auto) 8.1 H K/mm3 (1.3-6.7) Absolute Nucleated RBC 0.000 K/mm3 (0.0-0.012) Nucleated RBC % 0.0 % (0.0-0.2) Sodium 138 mmol/L (137-145) Potassium 4.0 mmol/L (3.4-5.0) Chloride 102 mmol/L (98-107) Carbon Dioxide 26 mmol/L (22-30) Anion Gap 10 mmol/L (4-12) BUN 12 mg/dL (7-17) Creatinine 0.76 mg/dL (0.7-1.0) Estim Creat Clear Calc 78 ml/min Estimated GFR > 60 (59 - ) Glucose 101 mg/dL (65-110) Calcium 9.4 mg/dL (8.4-10.2) Total Bilirubin 0.4 mg/dL (0.2-1.3) AST 22 U/L (14-36) ALT 16 U/L (6-35) Alkaline Phosphatase 56 U/L (38-126) Total Protein 8.1 g/dL (6.3-8.2) Albumin 5.1 g/dL (3.5-5.1) Urine Color Yellow (Yellow) Urine Appearance Clear (Clear) Urine pH 5.5 (5.0-9.0) Ur Specific [place] 1.018 (1.001-1.035) Urine Protein Trace mg/dL (Negative) Urine Glucose (UA) Negative mg/dL (Negative) Urine Ketones Negative mg/dL (Negative) Ur Blood (Man) 3+ H (Negative) Urine Nitrate Negative (Negative) Urine Bilirubin Negative (Negative) Urine Urobilinogen 0.2 mg/dL (<2.0) Leukocyte Esterase Rfl 1+ H GERRY/UL (Negative) Urine RBC 51-100 H /hpf (0-2) Urine WBC 11-20 H /hpf (0-3) Ur Squamous Epith Cells None seen /hpf (Few) Urine Bacteria None seen /hpf Urine Casts 0-2 POC Urine HCG, Qual Negative (Negative) Patient hx anesthesia problems: none Family hx anesthesia problems: none Results Review: All pre-operative results and documents have been reviewed as part of the pre-operative evaluation. Anes - Eval Final PreProcedure Day of Procedure 05/21/25 10:50 Patient weight: normal and thin Lungs: normal air movement Airway: Mallampati scale class II Last oral intake: >/= 8 hours ASA classification: I Emergent: no Anesthetic plan: proceed Anesthesia type and monitoring: general LMA and standard monitoring Results Review: All pre-operative results and documents have been reviewed as part of the pre-operative evaluation. Healthy, w ureteral stone. Informed Consent: The patient's anesthetic plan and its attendant risks and benefits were discussed with the patient/family/POA. Questions were solicited and answers provided to the satisfaction of the patient/family/POA.
--- OUTSIDE RECORDS SUMMARY | 2025-05-21 10:52 | XMS_ITS | Clinical Summary ---
Author Organization [facility] Address [address] [place] [address] Care Team Providers Care Operations Coordinator Name Role Phone David Fowler MD Primary Care Provider Allergies Active Allergy Reactions Criticality Noted Date [...] 12/2022 Assessment & Plan (06/19/2023 2:25 PM PROFESSOR OF GRAPHIC DESIGN): As per GI Start rifaxmin tid Irritable bowel syndrome with diarrhea 3 Chronic diarrhea 01/22/2023 Nausea and vomiting 01/22/2023 Assessment & Plan (09/17/2023 2:30 PM PROFESSOR OF GRAPHIC DESIGN): Worsening sx Will start zofran again Assessment & Plan (06/19/2023 2:24 PM PROFESSOR OF GRAPHIC DESIGN): Following with GI Nothing to exaplian sx [...] therapy Assessment & Plan (06/19/2023 1:37 PM PROFESSOR OF GRAPHIC DESIGN): Doing well at this time and well [...] 09/26/2022 Assessment & Plan (06/19/2023 1:38 PM PROFESSOR OF GRAPHIC DESIGN): Stable at this time Patient reiterated no [...] Department Care Team Description 05/18/2025 10:11 AM PROFESSOR OF GRAPHIC DESIGN - 05/18/2025 5:49 PM PROFESSOR OF GRAPHIC DESIGN Emergency [facility] Emergency Department [address] [place] [address] Beatriz Kovacs MD Panagos, Peter David, MD Nephrolithiasis (Primary Dx) Discharge Disposition: Discharge to home or self care 04/13/2025 3:15 PM CDT Telemedicine [facility] Primary Care at [address] [phone] David Fowler MD Nausea and vomiting, unspecified [...] on file Legal Sex Female 6:09 AM PROFESSOR OF GRAPHIC DESIGN Gender Identity Female 09/14/2023 12:58 PM PROFESSOR OF GRAPHIC DESIGN Sexual Orientation Straight 09/14/2023 12 :58 PM PROFESSOR OF GRAPHIC DESIGN Obstetrics History Para Term AB IAB SAB Ectopic Multiple Livin g Live Births 0 0 0 0 0 0 0 0 0 0 0 Last Filed Vital Signs Vital Sign Reading Time Taken Comments Blood Pressure 112/70 05/18/2025 12:50 PM PROFESSOR OF GRAPHIC DESIGN Pulse 106 05/18/2025 9:42 AM PROFESSOR OF GRAPHIC DESIGN Temperature 36.7 C (98 F) 05/18/2025 9:44 AM PROFESSOR OF GRAPHIC DESIGN Respiratory Rate 16 05/18/2025 9:42 AM PROFESSOR OF GRAPHIC DESIGN Oxygen Saturation 100% 05/18/2025 9:42 AM PROFESSOR OF GRAPHIC DESIGN Inhaled Oxygen Concentration - - Weight 46.3 kg (102 lb) 05/18/2025 9:42 AM PROFESSOR OF GRAPHIC DESIGN Height 157.5 cm (5' 2) 05/18/2025 9:42 AM PROFESSOR OF GRAPHIC DESIGN Body Mass Index 18.66 05/18/2025 9:42 AM PROFESSOR OF GRAPHIC DESIGN Plan of Treatment Health Maintenance Due Date [...] CONTRAST ED Urgent/IP Urgent 05/18/2025 1:27 PM PROFESSOR OF GRAPHIC DESIGN EGFR STAT 05/18/2025 12:32 PM PROFESSOR OF GRAPHIC DESIGN DIFFERENTIAL AUTO STAT 05/18/2025 12: 32 PM PROFESSOR OF GRAPHIC DESIGN LIPASE STAT 05/18/2025 12:32 PM PROFESSOR OF GRAPHIC DESIGN COMPREHENSIVE METABOLIC PANEL STAT 05/18/2025 12:32 PM PROFESSOR OF GRAPHIC DESIGN CBC WITH AUTO DIFFERENTIAL STAT 05/18/2025 12:32 PM PROFESSOR OF GRAPHIC DESIGN EGFR STAT 05/18/2025 11:19 AM PROFESSOR OF GRAPHIC DESIGN DIFFERENTIAL AUTO STAT 05/18/2025 11: 19 AM PROFESSOR OF GRAPHIC DESIGN LIPASE STAT 05/18/2025 11:19 AM PROFESSOR OF GRAPHIC DESIGN COMPREHENSIVE METABOLIC PANEL STAT 05/18/2025 11:19 AM PROFESSOR OF GRAPHIC DESIGN CBC WITH AUTO DIFFERENTIAL STAT 05/18/2025 11:19 AM PROFESSOR OF GRAPHIC DESIGN POCT HCG, URINE Routine 05/18/2025 10:31 AM PROFESSOR OF GRAPHIC DESIGN URINALYSIS, MICROSCOPIC ONLY STAT 05/18/2025 10:31 AM PROFESSOR OF GRAPHIC DESIGN URINALYSIS AND REFLEX TO MICROSCOPIC STAT 05/18/2025 10:31 AM PROFESSOR OF GRAPHIC DESIGN N. GONORRHOEAE/C. TRACHOMATIS AMPLIFICATION Routine 11/20/2024 4:31 PM CDT PAP, REFLEX HPV Routine 11/20/2024 4:31 PM CDT Well woman exam from Last 3 Months or Most Recently Relevant to Health Maintenance Results * CT Abdomen Pelvis W Contrast (05/18/2025 1:27 PM PROFESSOR OF GRAPHIC DESIGN) Anatomical Region Laterality Modality Body N/A Computed Tomogra phy 05/18/2025 2:32 PM PROFESSOR OF GRAPHIC DESIGN Impressions 05/18/2025 2:33 PM PROFESSOR OF GRAPHIC DESIGN Mild right-sided hydronephrosis with 3 mm calcification [...] Prince Fraser M.D. Narrative 05/18/2025 2:33 PM PROFESSOR OF GRAPHIC DESIGN EXAMINATION: Computed tomography of the abdomen and [...] Re sult * eGFR (05/18/2025 12:32 PM PROFESSOR OF GRAPHIC DESIGN) eGFR >90 >=60 mL/min/1. 73 m2 Comment: [...] reviewed 2021. Blood 05/18/2025 12:3 2 PM PROFESSOR OF GRAPHIC DESIGN 05/18/2025 12:42 PM PROFESSOR OF GRAPHIC DESIGN Beatriz Kovacs MD LAB BLOOD ORDERABLES Final Result [facility] [address] [facility] Department [place] [address] * (ABNORMAL) Differential, auto (05/18/2025 12:32 PM PROFESSOR OF GRAPHIC DESIGN) Neutrophil abs 6.52(H) 1.50 - 6.50 K/cumm Imm gran abs 0.02 0.00 - 0.10 K/cumm [facility] Lymphocyte abs 2.21 0.80 - 3.30 K/cumm [facility] Monocyte abs 0.58 0.20 - 0.80 K/cumm [facility] Eosinophil abs 0.07 0.00 - 0.50 K/cumm [facility] Basophil abs 0.05 0.00 - 0.10 K/cumm [facility] Neutrophil pct 69.1 % [facility] Comment: Interpretive Data Percent cell count reference ranges are not reported, since discordance with absolute values may lead to misinterpretation of CBC data. Current Interpretive Data was last revised on 2017. Imm gran pct 0.2 % [facility] Comment: Interpretive Data Percent cell count reference ranges are not reported, since discordance with absolute values may lead to misinterpretation of CBC data. Current Interpretive Data was last revised on 2017. Lymphocyte pct 23.4 % [facility] Comment: Interpretive Data Percent cell count reference ranges are not reported, since discordance with absolute values may lead to misinterpretation of CBC data. Current Interpretive Data was last revised on 2017. Monocyte pct 6.1 % [facility] Comment: Interpretive Data Percent cell count reference ranges are not reported, since discordance with absolute values may lead to misinterpretation of CBC data. Current Interpretive Data was last revised on 2017. Eosinophil pct 0.7 % [facility] Comment: Interpretive Data Percent cell count reference ranges are not reported, since discordance with absolute values may lead to misinterpretation of CBC data. Current Interpretive Data was last revised on 2017. Basophil pct 0.5 % [facility] Comment: Interpretive Data Percent cell count reference ranges are not reported, since discordance with absolute values may lead to misinterpretation of CBC data. Current Interpretive Data was last revised on 2017. Blood 05/18/2025 12:3 2 PM PROFESSOR OF GRAPHIC DESIGN 05/18/2025 12:42 PM PROFESSOR OF GRAPHIC DESIGN us Beatriz Kovacs MD LAB BLOOD ORDERABLES Final Result [facility] [address] [place] [address] * (ABNORMAL) CBC with auto differential (05/18/2025 12:32 PM PROFESSOR OF GRAPHIC DESIGN) WBC 9.45 3.80 - 9.90 K/cumm Hgb 12.3 11.9 - 15.5 g/dL [facility] Hct 35.2(L) 35.6 - 45.5 % [facility] Plt 233 150 - 400 K/cumm [facility] MPV 10.3 9.1 - 12.3 fL [facility] RBC 3.75(L) 3.90 - 5.20 M/cumm [facility] MCV 93.9 81.3 - 96.4 fL [facility] MCH 32.8 27.1 - 33.3 pg [facility] MCHC 34.9 32.3 - 35.7 g/dL [facility] RDW CV 11.9 11.1 - 14.9 % [facility] RDW SD 41.4 35.7 - 48.1 fL [facility] NRBC abs 0.00 0.00 - 0.01 K/cumm [facility] Blood 05/18/2025 12:3 2 PM PROFESSOR OF GRAPHIC DESIGN 05/18/2025 12:42 PM PROFESSOR OF GRAPHIC DESIGN Beatriz Kovacs MD LAB BLOOD ORDERABLES Final Result Performing Organization Address City/[facility]/ZIP Co de Phone Number [facility] Department [place] [address] * Lipase (05/18/2025 12:32 PM PROFESSOR OF GRAPHIC DESIGN) [facility] Lipase 16 10 - 99 Units/L Blood 05/18/2025 12:3 2 PM PROFESSOR OF GRAPHIC DESIGN 05/18/2025 12:42 PM PROFESSOR OF GRAPHIC DESIGN Beatriz Kovacs MD LAB BLOOD ORDERABLES Final Result Performing Organization Address [facility] de Phone Number [facility] [place] [address] * (ABNORMAL) Comprehensive metabolic panel (05/18/2025 12:32 PM PROFESSOR OF GRAPHIC DESIGN) [facility] Sodium 140 135 - 145 mmol/L Potassium, pl 3.7 3.3 - 4.9 mmol/L [facility] Chloride 107 97 - 110 mmol/L [facility] CO2 25 22 - 32 mmol/L [facility] Anion gap 8 2 - 15 mmol/L [facility] BUN 10 6 - 25 mg/dL [facility] Creatinine 0.71 0.60 - 1.10 mg/dL [facility] Glucose 98 70 - 199 mg/dL [facility] Comment: Interpretive Data Fasting glucose >/= [...] Calcium 8.3(L) 8.5 - 10.3 mg/dL [facility] Bilirubin, total 0.5 0.1 - 1.2 mg/dL [facility] Protein, pl 6.3(L) 6.5 - 8.5 g/dL [facility] Albumin 4.1 3.5 - 5.0 g/dL [facility] Alk phos 49 40 - 130 Units/L [facility] ALT 10 7 - 45 Units/L [facility] AST 12 10 - 45 Units/L [facility] Blood 05/18/2025 12:3 2 PM PROFESSOR OF GRAPHIC DESIGN 05/18/2025 12:42 PM PROFESSOR OF GRAPHIC DESIGN us Beatriz Kovacs MD LAB BLOOD ORDERABLES Final Result [facility] [address] Department [place] [address] * eGFR (05/18/2025 11:19 AM PROFESSOR OF GRAPHIC DESIGN) eGFR >90 >=60 mL/min/1. 73 m2 Comment: [...] reviewed 2021. Blood 05/18/2025 11:1 9 AM PROFESSOR OF GRAPHIC DESIGN 05/18/2025 1:11 PM PROFESSOR OF GRAPHIC DESIGN Beatriz Kovacs MD LAB BLOOD ORDERABLES Final Result [facility] [address] Department [place] [address] * (ABNORMAL) Differential, auto (05/18/2025 11:19 AM PROFESSOR OF GRAPHIC DESIGN) Neutrophil abs 9.60(H) 1.50 - 6.50 K/cumm Imm gran abs 0.04 0.00 - 0.10 K/cumm [facility] Lymphocyte abs 2.26 0.80 - 3.30 K/cumm [facility] Monocyte abs 0.58 0.20 - 0.80 K/cumm [facility] Eosinophil abs 0.03 0.00 - 0.50 K/cumm [facility] Basophil abs 0.04 0.00 - 0.10 K/cumm [facility] Neutrophil pct 76.6 % [facility] Comment: Interpretive Data Percent cell count reference ranges are not reported, since discordance with absolute values may lead to misinterpretation of CBC data. Current Interpretive Data was last revised on 2017. Imm gran pct 0.3 % [facility] Comment: Interpretive Data Percent cell count reference ranges are not reported, since discordance with absolute values may lead to misinterpretation of CBC data. Current Interpretive Data was last revised on 2017. Lymphocyte pct 18.0 % [facility] Comment: Interpretive Data Percent cell count reference ranges are not reported, since discordance with absolute values may lead to misinterpretation of CBC data. Current Interpretive Data was last revised on 2017. Monocyte pct 4.6 % [facility] Comment: Interpretive Data Percent cell count reference ranges are not reported, since discordance with absolute values may lead to misinterpretation of CBC data. Current Interpretive Data was last revised on 2017. Eosinophil pct 0.2 % [facility] Comment: Interpretive Data Percent cell count reference ranges are not reported, since discordance with absolute values may lead to misinterpretation of CBC data. Current Interpretive Data was last revised on 2017. Basophil pct 0.3 % [facility] Comment: Interpretive Data Percent cell count reference ranges are not reported, since discordance with absolute values may lead to misinterpretation of CBC data. Current Interpretive Data was last revised on 2017. Blood 05/18/2025 11:1 9 AM PROFESSOR OF GRAPHIC DESIGN 05/18/2025 1:11 PM PROFESSOR OF GRAPHIC DESIGN us Beatriz Kovacs MD LAB BLOOD ORDERABLES Final Result [facility] [address] Department [place] [address] * (ABNORMAL) CBC with auto differential (05/18/2025 11:19 AM PROFESSOR OF GRAPHIC DESIGN) WBC 12.55(H) 3.80 - 9.90 K/cumm Hgb 14.2 11.9 - 15.5 g/dL [facility] Hct 40.8 35.6 - 45.5 % [facility] Plt 315 150 - 400 K/cumm [facility] MPV 11.0 9.1 - 12.3 fL [facility] RBC 4.33 3.90 - 5.20 M/cumm [facility] MCV 94.2 81.3 - 96.4 fL [facility] MCH 32.8 27.1 - 33.3 pg [facility] MCHC 34.8 32.3 - 35.7 g/dL [facility] RDW CV 11.9 11.1 - 14.9 % [facility] RDW SD 41.4 35.7 - 48.1 fL [facility] NRBC abs 0.00 0.00 - 0.01 K/cumm [facility] Blood 05/18/2025 11:1 9 AM PROFESSOR OF GRAPHIC DESIGN 05/18/2025 1:11 PM PROFESSOR OF GRAPHIC DESIGN Beatriz Kovacs MD LAB BLOOD ORDERABLES Final Result Performing Organization Address City/[facility]/ZIP Co de Phone Number [facility] Department [place] [address] * Lipase (05/18/2025 11:19 AM PROFESSOR OF GRAPHIC DESIGN) Pathologist [facility] Lipase 18 10 - 99 Units/L Blood 05/18/2025 11:1 9 AM PROFESSOR OF GRAPHIC DESIGN 05/18/2025 1:11 PM PROFESSOR OF GRAPHIC DESIGN Beatriz Kovacs MD LAB BLOOD ORDERABLES Final Result Performing Organization Address [facility] Phone Number [facility] Department [place] [address] * Comprehensive metabolic panel (05/18/2025 11:19 AM PROFESSOR OF GRAPHIC DESIGN) [facility] Sodium 143 135 - 145 mmol/L Potassium, pl 3.7 3.3 - 4.9 mmol/L [facility] Chloride 104 97 - 110 mmol/L [facility] CO2 26 22 - 32 mmol/L [facility] Anion gap 13 2 - 15 mmol/L [facility] BUN 11 6 - 25 mg/dL [facility] Creatinine 0.72 0.60 - 1.10 mg/dL [facility] Glucose 85 70 - 199 mg/dL [facility] Comment: Interpretive Data Fasting glucose >/= [...] 2022. Calcium 9.5 8.5 - 10.3 mg/dL [facility] Bilirubin, total 0.6 0.1 - 1.2 mg/dL [facility] Protein, pl 7.7 6.5 - 8.5 g/dL [facility] Albumin 4.9 3.5 - 5.0 g/dL [facility] Alk phos 59 40 - 130 Units/L [facility] ALT 13 7 - 45 Units/L [facility] AST 17 10 - 45 Units/L [facility] Blood 05/18/2025 11:1 9 AM PROFESSOR OF GRAPHIC DESIGN 05/18/2025 1:11 PM PROFESSOR OF GRAPHIC DESIGN us Beatriz Kovacs MD LAB BLOOD ORDERABLES Final Result [facility] [address] [facility] [place] [address] * (ABNORMAL) Urinalysis reflex to microscopic (05/18/2025 10:31 AM PROFESSOR OF GRAPHIC DESIGN) Color, ur Straw Yellow Clarity, ur Clear Clear [facility] Specific gravity, ur 1.019 1.003 - 1.030 [facility] pH, urine 7.0 [facility] Comment: Interpretive Data U rine pH is affected by diet, medications, systemic acid-base disturbances, and renal tubular function. pH may affect urinary stone formation. For example, urine pH below 6.0 may help reduce the tendency for calcium phosphate stones and pH greater than 6.0 may reduce the tendency for uric acid stone formation. Source: [facility] [employer] Current Interpretive Data was last revised on 2017 Protein, ur ql Trace Negative [facility] Glucose, ur ql Negative Negative [facility] Ketones, ur Negative Negative [facility] Bilirubin, ur Negative Negative [facility] Blood, ur 2+(A) Negative [facility] Urobilinogen, ur <2.0 <2.0 mg/dL [facility] Nitrite, ur Negative Negative [facility] Leukocyte esterase, ur Negative Negative [facility] UA reflex comment Reflex to microscopic UA will be performed. [facility] Urine 05/18/2025 10:3 1 AM PROFESSOR OF GRAPHIC DESIGN 05/18/2025 10:39 AM PROFESSOR OF GRAPHIC DESIGN Beatriz Kovacs MD LAB URINE ORDERABLES Final Result Performing Organization Address [facility] Co de Phone Number [facility] [place] [address] * (ABNORMAL) Urinalysis, microscopic only (05/18/2025 10:31 AM PROFESSOR OF GRAPHIC DESIGN) Pathologist [facility] WBC, ur 0-5 0 - 5 /HPF RBC, ur 21-50(A) 0 - 2 /HPF [facility] Epithelial cells, squamous, ur 1-5 0 - 5 /HPF [facility] Bacteria, ur Trace(A) [facility] Mucous, ur Present(A) [facility] Urine 05/18/2025 10:3 1 AM PROFESSOR OF GRAPHIC DESIGN 05/18/2025 10:39 AM PROFESSOR OF GRAPHIC DESIGN Beatriz Kovacs MD LAB URINE ORDERABLES Final Result Performing Organization Address [facility] de Phone Number [facility] [place] [address] * POCT hCG, urine (05/18/2025 10:31 AM PROFESSOR OF GRAPHIC DESIGN) Pathologist [facility] HCG, ur, POC Negative Negative Lot Number [id number] QC Backgroud Clear Acceptable QC Control Line Acceptable Urine 05/18/2025 10:3 1 AM PROFESSOR OF GRAPHIC DESIGN Beatriz Kovacs MD POINT OF CARE TEST [...] and/or menstrual status not provided HPV interp [facility] Comment: Cytology Results: Negative for intraepithelial lesion or malignancy. COMMENTS [facility] Comment: This Pap test has been evaluated with computer assisted technology. Landfill Gas Collection Operator [facility] Comment: DXP, CT(ASCP) CT Screening Location: [facility] [address] [place] [address] Comment [facility] Comment: EXPLANATORY NOTE: The Pap is a [...] 11/23/2024 8:41 AM CDT us Annamaria Mg JAVA GRAILS DEVELOPER LAB CYTOLOGY ORDERABLES Final Re sult [address] [address] * N. gonorrhoeae/C. trachomatis Amplification (11/20/2024 4:31 PM CDT) C. trachomatis RNA NOT DETECTED NOT DETECTED [facility] N. gonorrhoeae RNA NOT DETECTED NOT DETECTED [facility] Comment [facility] Comment: The analytical performance characteristics of this assay, when used to test SurePath(TM) specimens have been determined by [email or web address]. The modifications have not been cleared or approved by the FDA. This assay has been validated pursuant to the CLIA regulations and is used for clinical purposes. For additional information, please refer to https://education.[employer]/faq/CZP643 (This link is being provided for information/ educational purposes only.) 11/20/2024 4:31 PM CDT 11/23/2024 8:41 AM CDT us Annamaria Mg JAVA GRAILS DEVELOPER LAB MICROBIOLOGY - GENERAL ORDER MADY Final Result [facility] [address] [place] [address] from Last 3 Months or Most Recently Relevant to Health Maintenance Insurance [employer] [place] [address] [employer] Address: [facility] [address] [place] [address] Advance Directives For more information, please contact: [phone] * Full Code (Latest Code Status on File) Date Activated Date Inactivated Comments 08/02/2024 5:06 PM 08/04/2024 6:07 PM * Full Code Date Activated Date Inactivated Comments 03/05/2023 1:12 PM 03/05/2023 7:09 PM * Full Code Date Activated Date Inactivated Comments 03/05/2023 1:12 PM 03/05/2023 1:12 PM Care Teams Operations Coordinator Relationship Specialty Start Date End Date David Fowler MD PCP - General Family Medicine 09/26/22
--- NOTE | 2025-05-21 11:04 | WPDHPUPDATE1 ---
History and Physical Update Update Date/Time: 05/21/25 11:04 History and Physical has been reviewed, including an updated exam of the patient. There are NO changes in the patient's condition. Risks, benefits, and alternatives have been discussed and questions answered. Patient agrees to proceed with procedure.
[2025-05-21] MEDS: ceFAZolin 2 GM in SODIUM CHLORIDE 0.9% IV 50 ML 100 ML IVPB (11:15)
[2025-05-21] MEDS: LIDOCAINE 2% GEL UROJET 10 ML PKG MUCOUS MEM (11:27)
--- NOTE | 2025-05-21 11:38 | S_PTH ---
PATIENT: Lawanda Hunt LOC: [facility] U#:[id number] AGE/SX: 24/F ROOM: RE05/21/[address]: Puja Humphries MD : 2000 BED: DIS: 05/21/2025 SPEC #: [id number] RECD: 05/21/25 13:14 STATUS: INDIGO REQ #: [id number] CHYNA: 05/21/25 11:[address]: Puja Humphries DEPT: [facility] Surgical RECD BY: Isabella Queen ENTERED: 05/21/25 13:14 SP TYPE: Surgical OTHR DR: David Fowler, Tissues: A - Stone Procedures: Gross Exam Level 1 Crystalline Analysis
[2025-05-21] MEDS: fentaNYL CITRATE INJ (*CRX) 100 MCG/2 ML VIAL 25 MCG IV PUSH ×4 (12:20→12:40)
--- NOTE | 2025-05-21 13:17 | P.OP_ITS ---
Procedure Note - Detailed Date of Procedure 05/21/25 Pre-op Diagnosis R URETERAL STONE Post-op Diagnosis Same (RIGHT URETERAL STONE) Procedure Performed RIGHT URETEROSCOPY, LASER LITHOTRIPSY, STONE EXTRACTION, STENT PLACEMENT Surgeon Puja Humphries MD Anesthesia General Findings IMPACTED RIGHT UVJ STONE RIGHT URETERAL EDEMA SHORT DISTAL RIGHT URETERAL STRICTURE Description of Procedure The patient was correctly identified informed consent was obtained. She was taken to the operating room placed in the dorsal lithotomy position. She was prepped and draped in the standard fashion. Lighted jet was injected into the urethra. Rigid cystoscopy was performed. The bladder mucosa appeared normal. Bilateral ureteral orifices were in their orthotopic position and noted to efflux clear urine. Semi rigid distal right ureteroscopy was performed and the stone identified in the distal ureter. Distal to the stone and at the level of the stone was noted to be a short bandlike narrowing that was blanched, consistent with short ureteral stricture with patent ureter. The stone was noted to be moderately impacted. The stone was fragmented with holmium laser and fragments flushed into the bladder. The remaining stone fragment migrated just proximal and this was removed with an Escape basket. Research Microbiologist imaging with fluoroscopy revealed persistent contrast within the bilateral collecting systems to the distal ureters with hydronephrosis noted on the right and therefore retrograde pyelogram was not performed. Under direct vision a 4 Turkmen ureteral stent was placed with the proximal end coiling within the kidney the distal end within the bladder. The bladder is then drained. The patient tolerated the procedure well. Complications none disposition the patient has taken a stable condition to the postoperative care unit. I was present for and performed the entire procedure. The stent will be removed in the office in approximately 1 week Implants 4Fr right ureteral stent Estimated Blood Loss 0 Pathology Yes (Right ureteral stone) Condition Stable Disposition PACU
[2025-05-21] MEDS: oxyCODONE HCL (*CRX) 5 MG TAB IR PO (13:34)
== END 2025-05-21 14:01 | disposition home or self-care (01) ==
LOC: ANHED 09:45 → ANHSURGERY 10:08
PROVIDERS: Emergency Provider Student in an Organized Health Care Education/Training Program; PCP Family Medicine; Visit Provider Urology
PROC: (CPT 52352; principal; 2025-05-21 11:30)
DX: N13.2 Hydronephrosis with renal and ureteral calculous obstruction (principal)
CPT/HCPCS: 52356; 36415; 74177; 74420; 80053; 81001; 81025; 82365; 85025; 87086; 88300; 96374; 96375; 96376; 99285; J0690; A9270; C1769; C2617; J0330; J1100; J2003; J2250; J2270; J2405; J2704; J2765; J3010; J7120; Q9967